=== PATIENT | female | born 1930 | race Caucasian/White ===

== ENCOUNTER 2017-02-23 20:44 | Emergency (ER) | payer MEDICARE ==
[2017-02-23 20:59] VITALS: BP 152/76
--- NOTE | 2017-02-23 21:39 | UC ---
Back Pain HPI - HPI Summary HPI Summary: Fell while out walking tonight does not believe she fainted or had a LOC, does remember hitting her head on something soft has some back and chest wall pain after the fall ---hurts a bit but seems to be getting better neighbors brought her in to the urgent care for an evaluation - History of Current Complaint Chief Complaint: UCHeadInjury Stated Complaint: HEAD INJURY FROM FALL Time Seen by Provider: 02/23/17 21:02 Hx Obtained From: Patient ?: No Onset/Duration: Sudden Onset, Other - happened less than 1 hour ago Severity Initially: Moderate Severity Currently: Mild Back Pain: Is Diffuse - as stated Character: Unable to Describe Aggravating Factor(s): Nothing Alleviating Factor(s): Nothing Associated Signs And Symptoms: Positive: Negative - Allergies/Home Medications Allergies/Adverse Reactions: Allergies Allergy/AdvReac Type Severity Reaction Status Date / Time Sulfa Antibiotics Allergy Intermediate Rash Verified 02/23/17 20:58 Aspirin Allergy Unknown Unknown Verified 02/23/17 20:58 Reaction Details Latex Allergy Unknown Unknown Verified 02/23/17 20:58 Reaction Details Nickel Allergy Unknown Unknown Verified 02/23/17 20:58 Reaction Details Penicillins Allergy Unknown Verified 02/23/17 20:58 Reaction Details Home Medications: Home Medications Coenzyme Q10 (Ubidecarenone) [Coq10] 02/23/17 [History] Multiple Vitamins W/ Minerals [Multivitamin Adults] 1 tab PO DAILY 02/23/17 [ History Confirmed 02/23/17] PMH/Surg Hx/FS Hx/Imm Hx Endocrine History: Dyslipidemia Neurological History: Other Other Neurological History: Parkinsons - Surgical History Surgical History: Yes Surgery Procedure, Year, and Place: HYSTERECTOMY, APPENDECTOMY, TONSILLECTOMY. - Family History Known Family History: Positive: Cardiac Disease - mother, Other - CVA to father - Social History Occupation: Retired Lives: With Family Alcohol Use: None Substance Use Type: None Smoking Status (MU): Never Smoked Tobacco Review of Systems Constitutional: Negative Skin: Negative Eyes: Negative ENT: Negative Respiratory: Negative Cardiovascular: Negative Gastrointestinal: Negative Genitourinary: Negative Motor: Negative Neurovascular: Negative Musculoskeletal: Arthralgia - low back and chest wall no head pain Neurological: Negative Psychological: Negative Is Patient Immunocompromised?: No All Other Systems Reviewed And Are Negative: Yes Physical Exam Triage Information Reviewed: Yes Appearance: No Pain Distress, Ill-Appearing - chronic, Thin Vital Signs: Initial Vital Signs Temp 97.8 F 02/23/17 20:50 Pulse 86 02/23/17 20:50 Resp 16 02/23/17 20:50 BP 152/76 02/23/17 20:50 Pulse Ox 99 02/23/17 20:50 Vital Signs Reviewed: Yes Eye Exam: Normal Eyes: Positive: Conjunctiva Clear ENT Exam: Normal ENT: Positive: Normal ENT inspection, Hearing grossly normal, Pharynx normal, TMs normal. Negative: Nasal congestion, Tonsillar swelling, Tonsillar exudate, Muffled voice, Hoarse voice, Sinus tenderness Neck exam: Normal Neck: Positive: Supple, Nontender, No Lymphadenopathy Respiratory Exam: Normal Respiratory: Positive: Chest non-tender, Lungs clear, Normal breath sounds, No respiratory distress, No accessory muscle use Cardiovascular Exam: Normal Cardiovascular: Positive: RRR, No Murmur, Pulses Normal, Brisk Capillary Refill Abdominal Exam: Normal Abdomen Description: Positive: Nontender, No Organomegaly, Soft Bowel Sounds: Positive: Present Musculoskeletal Exam: Normal Musculoskeletal: Positive: Strength Intact, ROM Intact, No Edema, Other: - chronic postural changes Neurological Exam: Normal Neurological: Positive: Alert, Muscle Tone Normal, Fatigued Psychological Exam: Normal, Other Psychological: Positive: Other: - does report her being unpredictable in her responses however he has never hit her and is not wishing for [facility] services. Information provided to patient Skin Exam: Normal Diagnostics - Radiology No standard instances Xray Interpretation: No Acute Changes Radiology Interpretation Completed By: Radiologist - EKG Cardiac Rate: NL Cardiac Rhythm: Sinus: Normal Ectopy: None ST Segment: Normal Back Pain Course/Dx - Course Course Of Treatment: rest follow with Dr. Alvarez in 1 day to ED by ambulance for any changes, signed out AMA - Differential Dx/Diagnosis Provider Diagnoses: Fall, contusion,head injury, hypertension Discharge - Discharge Plan Condition: Stable Disposition: AGAINST MEDICAL ADVICE Patient Education Materials: Head Injury (ED), Contusion in Adults (ED) Referrals: Whitney Alvarez MD [Primary Care Provider] - 1 Day
--- NOTE | 2017-02-23 21:59 | RAD ---
INDICATION: Fall. Pain COMPARISON: None TECHNIQUE: PA and lateral dual-energy views were obtained. FINDINGS: Bones/Soft Tissues: There are no acute bony findings. There is osteopenia with kyphosis Cardiomediastinal: The cardiomediastinal silhouette is normal. Lungs: There are no infiltrates. Pleura: There are no pleural effusions. Other: None IMPRESSION: NO ACTIVE DISEASE.
--- NOTE | 2017-02-23 22:01 | RAD ---
INDICATION: Back pain. Fall. COMPARISON: None TECHNIQUE: Standing PA, lateral, and oblique imaging was performed . FINDINGS: Bones: There are no acute bony findings. There are arthritic changes with facet arthropathy at the lower 2 lumbar levels. There is moderate narrowing about L4-L5 and L5-S1. There is vacuum disc phenomena at L5-S1. There is a grade 1 anterolisthesis of L4 and L5. Alignment: There is a grade 1 anterolisthesis of L4 and L5. There is minor levoscoliosis. Disc spaces: The remaining disc spaces are well-maintained Soft tissues: There are no soft tissue abnormalities. IMPRESSION: HISTORY OF THORACIC CHANGES OF THE LOWER LUMBAR SPINE WITH DEGENERATIVE DISC DISEASE AND A GRADE 1 ANTEROLISTHESIS OF L4 ON L5. NO ACUTE FINDINGS.
== END 2017-02-23 22:25 | disposition left against medical advice (07) ==
LOC: UCEAST 20:44
DX: S00.93XA Contusion of unspecified part of head, initial encounter (principal); W18.30XA Fall on same level, unspecified, initial encounter; Y93.01 Activity, walking, marching and hiking; Y92.9 Unspecified place or not applicable; I10 Essential (primary) hypertension; E78.5 Hyperlipidemia, unspecified; G20 Parkinson's disease; Z90.710 Acquired absence of both cervix and uterus; Z90.89 Acquired absence of other organs; Z88.0 Allergy status to penicillin; Z88.2 Allergy status to sulfonamides; Z88.6 Allergy status to analgesic agent; Z91.040 Latex allergy status
CPT/HCPCS: 71020; 72110; 93005; 99212; G0463

== ENCOUNTER 2017-03-11 19:16 | Inpatient (IN) | payer MEDICARE ==
--- NOTE | 2017-03-11 20:41 | RAD ---
INDICATION: Chest pain COMPARISON: February 23, 2017 TECHNIQUE: An AP portable view obtained at 2028 hours is submitted. FINDINGS: Bones/Soft Tissues: There are no acute bony findings. Cardiomediastinal: The cardiomediastinal silhouette is normal. Lungs: There are no infiltrates. There is hyperinflation Pleura: There are no pleural effusions. Other: None IMPRESSION: HYPERINFLATION. NO ACTIVE DISEASE
[2017-03-11 20:49] LABS: Hematocrit 36 % (35-47); Mean Corpuscular HGB Conc 34 g/dl (31-36); Mean Corpuscular Hemoglobin 31 pg (27-31); Mean Corpuscular Volume 92 fL (80-97); Mean Platelet Volume 8 um3 (7.4-10.4); Red Cell Distribution Width 14 % (10.5-15); White Blood Count 7.6 10^3/ul (3.5-10.8)
[2017-03-11 21:01] LABS: Albumin 3.8 g/dL (3.2-5.2); EGFR African American 77.7 (>60); EGFR Non-African American 60.4 (>60); Globulin 2.6 g/dL (2-4); Potassium 3.9 mmol/L (3.5-5.0); Total Bilirubin 0.8 mg/dL (0.2-1.0); Total Protein 6.4 g/dL (6.4-8.9)
--- NOTE | 2017-03-11 21:29 | ED ---
Samy Rocha Alfonso, scribed for Jessi Liao MD on 03/11/17 at 1958 . Complex/Multi-Sys Presentation - HPI Summary HPI Summary: This patient is an 86 year old F brought in by police to [facility] for dementia and safety concerns noted by police earlier today. Police reports adult protective services will be notified. The patient rates the pain 0/10 in severity. Symptoms aggravated and alleviated by nothing. This patient is taken care of by her . - History Of Current Complaint Chief Complaint: EDGeneral Time Seen by Provider: 03/11/17 19:49 Hx Obtained From: Patient, Other: - Police Onset/Duration: Gradual Onset, Still Present, Other - Noted by police earlier today Timing: Constant Aggravating Factor(s): Nothing Alleviating Factor(s): Nothing Associated Signs And Symptoms: Positive: Other - dementia and safety concerns - Allergies/Home Medications Allergies/Adverse Reactions: Allergies Allergy/AdvReac Type Severity Reaction Status Date / Time Sulfa Antibiotics Allergy Intermediate Rash Verified 03/11/17 19:45 Aspirin Allergy Unknown Unknown Verified 03/11/17 19:45 Reaction Details Latex Allergy Unknown Unknown Verified 03/11/17 19:45 Reaction Details Nickel Allergy Unknown Unknown Verified 03/11/17 19:45 Reaction Details Penicillins Allergy Unknown Verified 03/11/17 19:45 Reaction Details PMH/Surg Hx/FS Hx/Imm Hx Cardiovascular History: Reports: Hx Hypercholesterolemia History: Reports: Hx Renal Disease - "overactive bladder" Musculoskeletal History: Reports: Hx Osteoporosis - currently taking fosamax Opthamlomology History: Denies: Hx Legally Blind EENT History: Denies: Hx Deafness - Surgical History Surgery Procedure, Year, and Place: HYSTERECTOMY, APPENDECTOMY, TONSILLECTOMY. Infectious Disease History: Unable to Obtain/Confirm Infectious Disease History: Denies: Traveled Outside the [place] in Last 30 Days - Family History Known Family History: Positive: Cardiac Disease - mother, Other - CVA to father - Social History Alcohol Use: None Hx Substance Use: No Substance Use Type: Reports: None Hx Tobacco Use: No Smoking Status (MU): Never Smoked Tobacco Review of Systems Negative: Fever Psychological: Other - dementia and safety concerns All Other Systems Reviewed And Are Negative: Yes Physical Exam - Summary Physical Exam Summary: VITAL SIGNS: Reviewed. GENERAL: Patient is an elderly and nourished female who is lying comfortable in the stretcher. Patient is not in any acute respiratory distress. HEAD AND FACE: No signs of trauma. No ecchymosis, hematomas or skull depressions. No sinus tenderness. EYES: PERRLA, EOMI x 2, No injected conjunctiva, no nystagmus. EARS: Hearing grossly intact. Ear canals and tympanic membranes are within normal limits. MOUTH: Oropharynx within normal limits. NECK: Supple, trachea is midline, no adenopathy, no JVD, no carotid bruit, no c- spine tenderness, neck with full ROM. CHEST: Symmetric, no tenderness at palpation LUNGS: Clear to auscultation bilaterally. No wheezing or crackles. CVS: Regular rate and rhythm, S1 and S2 present, no murmurs or gallops appreciated. ABDOMEN: Soft, non-tender. No signs of distention. No rebound no guarding, and no masses palpated. Bowel sounds are normal. EXTREMITIES: FROM in all major joints, no edema, no cyanosis or clubbing. NEURO: Alert and oriented x 3. No acute neurological deficits. Speech is normal and follows commands. SKIN: Dry and warm Triage Information Reviewed: Yes Vital Signs On Initial Exam: Initial Vitals Temp Pulse Resp BP Pulse Ox 98.8 F 81 16 121/62 99 03/11/17 19:40 03/11/17 19:40 03/11/17 19:40 03/11/17 19:40 03/11/17 19:40 Vital Signs Reviewed: Yes Diagnostics - Vital Signs Vital Signs Temp Pulse Resp BP Pulse Ox 03/11/17 19:40 98.8 F 81 16 121/62 99 - Laboratory Result Diagrams: 03/11/17 20:35 03/11/17 20:35 Lab Statement: Any lab studies that have been ordered have been reviewed, and results considered in the medical decision making process. - Radiology CXR Radiology Interpretation Completed By: Radiologist - HYPERINFLATION. NO ACTIVE DISEASE. ED physician has reviewed this radiology report and agrees. - EKG 2014 Cardiac Rate: NL EKG Rhythm: Sinus Rhythm - 69 BPM EKG Interpretation: Normal axis. Normal interval. No ischemic changes. Complex Multi-Symp Course/Dx Assessment/Plan: Consulted Dr. Ahumada (hospitalist) at 2123 who agrees to admit. The patient is agreeable with this plan. - Diagnoses Provider Diagnoses: Generalized weakness - Physician Notifications Discussed Care Of Patient With: Nelly Ahumada Time Discussed With Above Provider: 21:23 Instructed by Provider To: Other - Consulted Dr. Ahumada (hospitalist) at 2122 who agrees to admit. Discharge - Discharge Plan Condition: Stable Disposition: ADMITTED TO [facility] Referrals: Whitney Alvarez MD [Primary Care Provider] - The documentation as recorded by the Samy lagos Alfonso accurately reflects the service I personally performed and the decisions made by Keshawn calvert Abdul, MD.
[2017-03-11 21:35] LABS: TSH (Thyroid Stimulating Horm) 0.5 mcIU/mL (0.34-5.60)
[2017-03-11] MEDS ORDERED: Acetaminophen TAB* 325 MG PO PRN (21:58)
[2017-03-11] MEDS ORDERED: Ondansetron INJ* 2 MG/ML VIAL IV PRN (21:58)
[2017-03-11] MEDS: Heparin VIAL(*) 5000 UNITS/ML VIAL (FIVE THOUSAND) SUBCUT SCH (22:56)
[2017-03-12 00:25] LABS: Urine Bacteria 1+ (Absent); Urine Bilirubin Negative (Negative); Urine Glucose Negative (Negative); Urine Nitrite Negative (Negative)
--- NOTE | 2017-03-12 01:26 | HP ---
CC: Dr. Alvarez. * HISTORY AND PHYSICAL: DATE OF ADMISSION: 03/11/17 PRIMARY CARE PROVIDER: Dr. Alvarez. ATTENDING PHYSICIAN WHILE IN THE HOSPITAL: Nelly Ahumada MD * (report being dictated by Kulwant Glass NP) CHIEF COMPLAINT: Dementia. HISTORY OF PRESENT ILLNESS: The patient has underlying dementia and there has been some conflicting reports, but from what I could piece together from reviewing EMS records, discussing with the staff down here, Ms. Gonzalez is an 86 -year-old female patient, she has dementia. According to her, she has had history of Parkinson's, rosacea, hyperlipidemia, and skin cancer. Apparently, she says the teacher adventure education came to her house today, she is not sure who called them or why. She was concerned that her had left the house. Unfortunately, it was noted that the patient's was sitting in the same spot and his recliner covered in stool. There was stool in the sink. The house appeared to be in shambles. The teacher [employer] were concerned and they brought the and the patient's in today to the ER for safety concerns. The says that she thinks somebody from [facility] had called. According to records and what I was able to find, the patient's is the primary caregiver. Apparently, the patient has been missing frequent appointments for followup with this new diagnosis of Parkinson's and has not been making them. The son is aware of this and he lives across the country in [place]. Her was apparently a week ago approached by [facility]'s staff because his car had been there for a week, the manager payer's department was called, they approached the patient about this, he apparently said he would take care of it and he never did. Then, the [facility] again today supposedly called the manager payer's department and they recognized the car from the week ago and they called EMS and adult protective services and they entered the home to see what was going on and it was noted to be disheveled. It was noted the patient's had been in the same spot for unknown period of time. So, he was brought into the hospital and the patient, Ms. Gonzalez, has nobody to care for her and because of her underlying dementia, we were asked to evaluate for safety issues, to keep her here as it was felt that she would not be safe for discharge home. There have been no reports of fever, chills, nausea, or vomiting. No reports of abdominal pain and no reports of chest discomfort, shortness of breath. The patient states that she does have Parkinson's, but she again does state that she has not been making appointments and this has been made clear by the patient's son. PAST MEDICAL HISTORY: Significant for: 1. Hyperlipidemia. 2. Dementia. 3. Skin cancer. 4. Rosacea. 5. Parkinson's. PAST SURGICAL HISTORY: She has had: 1. Tonsillectomy. 2. Appendectomy. 3. Cataract extraction. 4. She has had a breast biopsy. MEDICATIONS: Home meds, according to her recall, we need to clarify this with her PCP tomorrow, she is on, 1. Oxybutynin 1 tablet daily. 2. Lipitor 1 tablet daily. ALLERGIES: Include, 1. SULFA. 2. ASPIRIN. 3. LATEX. 4. NICKEL. 5. PENICILLIN. FAMILY HISTORY: Mother had heart disease, father had a CVA. SOCIAL HISTORY: She does not smoke, she does not drink. Her surrogate decision maker is her and son. REVIEW OF SYSTEMS: There is no documented fever. She denied having any significant weight change. There was no double vision. There is no ear discharge. Denied having any rhinorrhea. No sore throat. No thyroid enlargement. Denied having any chest pain. There is no orthopnea. There is no nocturnal dyspnea. There is no abdominal pain, no nausea, no vomiting, no dysuria, no frequency, no seizure, no loss of consciousness, no pruritus, and no skin ulcerations. Review of 14 systems completed, all others negative. PHYSICAL EXAMINATION GENERAL: At this time, Ms. Gonzalez is an 86-year-old female patient. She is sitting on the ER stretcher. She does not appear to be in any acute distress. VITAL SIGNS: Blood pressure 121/61, pulse 81, respirations 16, O2 sat 99%, temperature 98.8. HEENT: Head: Atraumatic, normocephalic. Eyes: EOMs are intact. Sclerae are anicteric and not pale. NECK: Supple. Throat: Oral mucosa appears to be moist. No oropharyngeal erythema. LUNGS: Clear to auscultation bilaterally. No wheezes, rales, or rhonchi. HEART: Sounds S1, S2. Regular rate and rhythm. No murmurs, rubs, or gallops. ABDOMEN: Soft, flat, nontender. Bowel sounds are present. EXTREMITIES: Pulses were 2+ throughout, no peripheral edema. She is moving all 4 extremities, 5/5 strength. NEUROLOGIC: The patient is awake, alert. She is oriented to place and self, confused to time, she thinks it is March. No gross focal deficits. Her skin was intact. DIAGNOSTIC STUDIES/LAB DATA: WBC is 6.6, RBC is 3.90, hemoglobin 12.0, hematocrit 36, platelet count is 219. Sodium 140, potassium 3.9, chloride 107, bicarb 23, BUN 32, creatinine 0.89, glucose 84, calcium 9.0. Total bili is 0.8 , AST 34, ALT 18, alk phos 89, albumin is 3.8. TSH normal. Chest x-ray obtained today, impression: Hyperinflation, no active disease. EKG today shows a normal sinus rhythm with a rate of [address] PAC[address] No [address] elevation or T-wave inversions. All medical records reviewed. ASSESSMENT/PLAN: Ms. Gonzalez is an 86-year-old female patient coming into the ER today with her as it was found by adult protective services that they appeared to be harmful to themselves. We were asked to evaluate for admission because there was not a safe discharge plan. She will be admitted under observatory status for: 1. Dementia. Clearly at this point, the patient's had been sitting in his own filth for presumably several days and is quite ill now. The patient has no recollection of this. She thought that the patient's had just __ ____ and left. There was stool on the and stool in the sink and the house sounded to be in shambles. Clearly I do not think that the patient is safe to be discharged home, in fact I think it will be detrimental to her health if when discharged home she could harm herself unintentionally. I think at this point it is appropriate to keep her in the hospital with a social work consult. I am going to check her for a UTI as well. We will have social work evaluate her for placement. The patient's son will be here tomorrow night at 10 o'clock. She may need some help with assisted living. I have ordered PT and OT as well to evaluate her and we will need to come up with a safe discharge plan. She is incapable to sign shelter paperwork at this point. 2. Hyperlipidemia. We will continue statin therapy. 3. Rosacea. Continue current medical regimen. 4. Question of Parkinson's. We will need to get records from Dr. Alvarez's office in the morning to see if workup has been done. 5. Dementia. Continue with supportive care. 6. History of skin cancer. Followed by primary. 7. DVT prophylaxis: She is high risk. Placed on heparin subcu. 8. Code status: She says that she does have DNR, we will try to track this down from Dr. Alvarez's office if possible. 9. Fluid and nutrition: She can have regular diet. TIME SPENT: Time spent on the admission was approximately 60 minutes, greater than half of the time was spent [id number] with the patient, obtaining history and physical, the other half of the time was spent going over the plan of care with the patient and implementing the plan of care. I did discuss plan of care with my attending, Dr. Ahumada, she is in agreement. KULWANT GLASS NP [id number]/CPS #: [id number] DRAKE
[2017-03-12] MEDS: Heparin VIAL(*) 5000 UNITS/ML VIAL (FIVE THOUSAND) SUBCUT SCH ×3 (08:34→21:06)
[2017-03-12] MEDS: Atorvastatin* 10 MG TAB PO SCH (11:58)
[2017-03-12] MEDS: Oxybutynin XL TAB* 5 MG PO SCH (11:58)
[2017-03-12] MEDS ORDERED: cefTRIAXone VIAL(*) 1,000 MG in D5W 50 ML BAG* 50 ML IVPB SCH (15:00)
--- NOTE | 2017-03-12 15:22 | PN ---
Subjective Date of Service: 03/12/17 Interval History: Patient seen and examined at bedside. She offers no acute complaints. She refuses to receive IV antibiotics. She prefers macrobid for her UTI. Denies any urinary symptoms. Family History: Unchanged from Admission Social History: Unchanged from Admission Past Medical History: Unchanged from Admission Objective Active Medications: Acetaminophen (Tylenol Tab*) 650 mg PO Q4H PRN Atorvastatin Calcium (Lipitor*) 10 mg PO DAILY [facility] Heparin Sodium (Porcine) (Heparin Vial(*)) 5,000 units SUBCUT Q8HR [facility] Nitrofurantoin Macrocrystals (Macrodantin*) 100 mg PO BID [facility] Ondansetron HCl (Zofran Inj*) 4 mg IV Q6H PRN Oxybutynin Chloride (Ditropan Xl Tab*) 5 mg PO DAILY [facility] Vital Signs Temp Pulse Resp BP Pulse Ox 97.4 F 72 16 135/61 98 03/12/17 11:10 03/12/17 11:10 03/12/17 11:10 03/12/17 11:10 03/12/17 11:10 Oxygen Devices in Use Now: None Appearance: sitting up in bed, NAD Eyes: No Scleral Icterus, PERRLA Ears/Nose/Mouth/Throat: NL Teeth, Lips, Gums Neck: NL Appearance and Movements; NL JVP Respiratory: Symmetrical Chest Expansion and Respiratory Effort, Clear to Auscultation Cardiovascular: NL Sounds; No Murmurs; No JVD, RRR Abdominal: NL Sounds; No Tenderness; No Distention Extremities: No Edema Skin: No Rash or Ulcers Neurological: NL Muscle Strength and Tone, - - AO to self and place Lines/Tubes/Other Access: Clean, Dry and Intact Peripheral IV Nutrition: Taking PO's Result Diagrams: 03/11/17 20:35 03/11/17 20:35 Assess/Plan/Problems-Billing Patient is an 86 y/o F w/ PMH significant for dementia and possible new dx of parkinson who was brought to the ER once her who is her primary caregiver was found unresponsive in they apartment. - Patient Problems (1) Weakness Comment: Labs WNL. Will try to obtain last PCP note. Continue PT and add OT. She will not be able to return home. (2) UTI (urinary tract infection) Comment: Initially ordered ceftriaxone but patient refusing; will change to macrobid and she states this is the only medication she will take. (3) Dementia Comment: Supportive care (4) HLD (hyperlipidemia) Comment: Continue statin (5) DVT prophylaxis Comment: Heparin SQ (6) DNR (do not resuscitate) Status and Disposition: Inpatient. Adan MONTANO
[2017-03-12] MEDS ORDERED: Nitrofurantoin Macrocrystals* 50 MG CAP PO SCH (21:00)
[2017-03-12] MEDS ORDERED: Ciprofloxacin TAB* 250 MG PO SCH (21:00)
[2017-03-12] MEDS: Nitrofurantoin Macrocrystals* 50 MG CAP PO SCH (21:05)
[2017-03-13] MEDS: Heparin VIAL(*) 5000 UNITS/ML VIAL (FIVE THOUSAND) SUBCUT SCH ×2 (05:26→15:00)
[2017-03-13 08:16] VITALS: BP 127/61
[2017-03-13] MEDS: Atorvastatin* 10 MG TAB PO SCH (09:39)
[2017-03-13] MEDS: Oxybutynin XL TAB* 5 MG PO SCH (09:39)
[2017-03-13] MEDS: Nitrofurantoin Macrocrystals* 50 MG CAP PO SCH (09:39)
--- NOTE | 2017-03-13 11:22 | PN ---
Subjective Date of Service: 03/13/17 Interval History: Patient seen and examined at bedside. Patient states she took her antibiotics last night. She ambulated well with PT this morning. Family History: Unchanged from Admission Social History: Unchanged from Admission Past Medical History: Unchanged from Admission Objective Active Medications: Acetaminophen (Tylenol Tab*) 650 mg PO Q4H PRN Atorvastatin Calcium (Lipitor*) 10 mg PO DAILY [facility] Heparin Sodium (Porcine) (Heparin Vial(*)) 5,000 units SUBCUT Q8HR [facility] Nitrofurantoin Macrocrystals (Macrodantin*) 50 mg PO BID [facility] Ondansetron HCl (Zofran Inj*) 4 mg IV Q6H PRN Oxybutynin Chloride (Ditropan Xl Tab*) 5 mg PO DAILY [facility] Vital Signs Temp Pulse Resp BP Pulse Ox 97.4 F 68 18 127/61 97 03/13/17 07:44 03/13/17 07:44 03/13/17 08:00 03/13/17 07:44 03/13/17 07:44 Oxygen Devices in Use Now: None Appearance: sitting up in chair, NAD Eyes: No Scleral Icterus, PERRLA Ears/Nose/Mouth/Throat: NL Teeth, Lips, Gums Neck: NL Appearance and Movements; NL JVP Respiratory: Symmetrical Chest Expansion and Respiratory Effort, Clear to Auscultation Abdominal: NL Sounds; No Tenderness; No Distention Extremities: No Edema Skin: No Rash or Ulcers Neurological: Alert and Oriented x 3, NL Muscle Strength and Tone Lines/Tubes/Other Access: Clean, Dry and Intact Peripheral IV Nutrition: Taking PO's Result Diagrams: 03/11/17 20:35 03/11/17 20:35 Assess/Plan/Problems-Billing Patient is an 86 y/o F w/ PMH significant for dementia and possible new dx of parkinson who was brought to the ER once her who is her primary caregiver was found unresponsive in they apartment. - Patient Problems (1) Weakness Comment: Labs WNL. Progress with PT (2) UTI (urinary tract infection) Comment: Continue macrobid. (3) Dementia Comment: Supportive care (4) HLD (hyperlipidemia) Comment: Continue statin (5) DVT prophylaxis Comment: Heparin SQ (6) DNR (do not resuscitate) Status and Disposition: Inpatient. Will need MIKEL.
--- NOTE | 2017-03-13 13:13 | PN ---
Hospitalist Progress Note HOSPITALIST ADDENDUM: Chest X-ray from 03/11/2017 showed no active disease which rules out the presence of tuberculosis.
--- NOTE | 2017-03-14 01:35 | DS ---
DISCHARGE SUMMARY: DATE OF ADMISSION: 03/11/17 DATE OF DISCHARGE: 03/13/17 PRIMARY CARE PROVIDER: Dr. Alvarez. ATTENDING PHYSICIAN: Dr. Nelly Ahumada * (report dictated by Carlie Burns NP). PRIMARY DIAGNOSES: 1. Dementia, unable to care for herself at home. 2. Urinary tract infection. SECONDARY DIAGNOSES: 1. Possible Parkinson's. 2. Dementia. STUDIES WHILE IN THE HOSPITAL: Chest x-ray: Hyperinflation, no active disease. MEDICATIONS AT TIME OF DISCHARGE: New medication: Macrobid 50 mg oral twice daily for 5 days. The following are all medications the patient came in on: 1. Ditropan 5 mg oral daily. 2. Lipitor 10 mg oral at bedtime. 3. Calcium with vitamin D 1 chewable oral daily. 4. Multivitamin 1 tablet oral daily. HISTORY OF PRESENT ILLNESS AND HOSPITAL COURSE: Ms. Gonzalez is an 86-year-old female with a history of dementia and possibly Parkinson's, hyperlipidemia, and skin cancer. She was brought to the emergency room after the deputy sheriff k9 handler found her unresponsive in the recliner. The was the v belt coverer of the ; hence, the was also brought to the emergency room out of concern for safety issues. The patient was found to have a urinary tract infection, was admitted to the medical floor. She was initially stated on ceftriaxone, yet she refused to take IV antibiotics and insisted on having Macrobid. Her antibiotics were transitioned to Macrobid. At the time of this dictation, the culture is pending. Clearly, the house was in shambles and once the patient's son arrived from out of state, plan was made for the patient to go to [facility]. Today, she is stable to be transferred there. She was continued on all of her home medications during this admission. The patient was seen and evaluated by Physical Therapy and was deemed independent, but met criteria for visiting nursing services to come see her at [facility]. On 03/13/17, vitals were as follows: Temperature 97.4, heart rate 68, respiratory rate 18, blood pressure 127/61, oxygen saturation 97%. At this point, the patient is stable for discharge with discharge plan. The patient was discharged on a regular diet. The patient should be followed up by her primary care provider, Dr. Whitney Alvarez, within 4 to 7 days. The patient should return to the hospital if she experiences any high fevers. I have reviewed all these instructions with the patient and her v belt coverer at [facility] and they are agreeable with her discharge today. This is a summarized report of a complex medical history and hospital stay. For more details, please see the entire medical record. TIME SPENT: Time for discharge was 50 minutes and 25 minutes was spent with the patient discussing discharge plan. CONDITION ON DISCHARGE: Stable CARLIE BURNS NP [id number]/CPS #: [id number] DRAKE
== END 2017-03-13 15:48 | disposition home health service (06) | DRG 690 ==
LOC: ED 19:16 → MEDTELE 21:57 → OBSVTOIN 03-12 14:15
PROVIDERS: ADMIT Pediatrics; ATTEND Pediatrics
DX: N39.0 Urinary tract infection, site not specified (principal); G20 Parkinson's disease; F02.80 Dementia in other diseases classified elsewhere, unspecified severity, without behavioral disturbance, psychotic disturbance, mood disturbance, and anxiety; M81.0 Age-related osteoporosis without current pathological fracture; L71.9 Rosacea, unspecified; Z66 Do not resuscitate; E78.5 Hyperlipidemia, unspecified; Z88.0 Allergy status to penicillin; Z88.8 Allergy status to other drugs, medicaments and biological substances; Z91.040 Latex allergy status; Z90.710 Acquired absence of both cervix and uterus; Z98.49 Cataract extraction status, unspecified eye; Z82.49 Family history of ischemic heart disease and other diseases of the circulatory system; Z82.3 Family history of stroke
CPT/HCPCS: 36415; 71010; 80053; 81003; 81015; 84443; 85025; 87086; 93005; A9270-GY; G8978-GP-CJ; G8979-GP-CI; G8987-GO-CI; G8988-GO-CI; G8989-GO-CI; J0696; J1644